=== PATIENT | female | born 1950 | race Caucasian/White ===

== ENCOUNTER 2022-05-04 09:31 | Emergency (ER) | payer MEDICARE, BC ==
[2022-05-04] MEDS ORDERED: Ondansetron PF 4 MG/2 ML Vial ONE (09:48)
[2022-05-04] MEDS ORDERED: Meclizine HCl 25 MG TAB ONE (09:48)
[2022-05-04 10:05] LABS: #Basophils 0.1 thou/uL (0.0-0.2); #Eosinphils 0.2 thou/uL (0.0-0.7); #Lymphocytes 1.7 thou/uL (1.20-3.40); #Monocytes 0.5 thou/uL (0.11-0.59); %Basophils 1.2 % (0.0-1.0); %Eosinophils 3.4 % (0.0-10.0); %Lymphocytes 30.5 % (21.0-51.0); %Monocytes 9.9 % (0.0-10.0); %Neutrophils 55.1 % (42.0-75.0); Hemoglobin 12.8 g/dL (12.0-16.0); Mean Corpuscular HGB CONC 32.4 g/dL (32.0-36.0); Mean Corpuscular Hemoglobin 29.2 pg (27.0-31.0); Mean Corpuscular Volume 90.1 fl (78.0-98.0); Mean Platelet Volume 8.7 fL (7.4-10.4); Platelet Count 227 thou/uL (130-400); RBC Distribution Width 11.5 % (11.5-14.5); Red Blood Cell (RBC) Count 4.37 mill/uL (4.20-5.40); White Blood Cell (WBC) Count 5.4 thou/uL (4.8-10.8)
[2022-05-04 10:24] LABS: ALT (SGPT) 15 U/L (8-55); AST (SGOT) 14 U/L (5-34); Albumin 3.7 g/dL (3.4-4.8); Alkaline Phosphatase 96 U/L (40-110); Anion Gap 14 mmol/L (10-20); BUN (Urea Nitrogen) 15 mg/dL (9.8-20.1); Bilirubin, Total 0.4 mg/dL (0.2-1.2); Calc. Creatinine Clearance 0 mL/min (70-130); Calcium 9.4 mg/dL (7.8-10.44); Carbon Dioxide 22 mmol/L (23-31); Chloride 110 mmol/L (98-107); Estimated GFR 69; Globulin 2.8 g/dL (2.4-3.5); Glucose 95 mg/dL (83-110); Potassium 3.8 mmol/L (3.5-5.1); Protein, Total 6.5 g/dL (5.8-8.1); Sodium 142 mmol/L (136-145)
[2022-05-04 11:00] LABS: Bilirubin Negative (Negative); Blood, Urine Negative (Negative); Clarity Slightly Cloudy (Clear); Glucose, Urine (Dipstick) Negative (Negative); Ketone, Urine Negative (Negative); Leukocyte Small (Negative); Nitrite Negative (Negative); Protein, Urine (Dipstick) Negative (Neg-Trace); Specific Gravity, Urine 1.015 (1.005-1.030); Urobilinogen 0.2 mg/dL (Less than 2); pH, Urine 7.5 (5.0-9.0)
[2022-05-04 11:08] LABS: RBC/HPF 0-3 HPF (0-3)
[2022-05-04 11:09] LABS: Bacteria/HPF 1+ HPF (None Seen)
== END 2022-05-04 11:45 | disposition home or self-care (01) ==
LOC: BURERS 09:31
DX: R42 Dizziness and giddiness (principal)
CPT/HCPCS: 70450; 80053; 81003; 81015; 85025; 93005; 94760; 96374; J2405

== ENCOUNTER 2024-04-19 14:28 | Emergency (ER) | payer MEDICARE, BC ==
[2024-04-19] MEDS ORDERED: Boostrix 0.5 ML (Tdap) VIAL (>/=7 yrs of age) ONE (15:44)
[2024-04-19] MEDS ORDERED: Cephalexin 250 MG CAP ONE (16:07)
== END 2024-04-19 16:17 | disposition home or self-care (01) ==
LOC: BURERS 14:28
DX: S81.812A Laceration without foreign body, left lower leg, initial encounter (principal); X58.XXXA Exposure to other specified factors, initial encounter; Y93.02 Activity, running; Z23 Encounter for immunization
CPT/HCPCS: 12004; 90471; 90715

== ENCOUNTER 2024-04-26 10:44 | Emergency (ER) | payer MEDICARE, BC | END 2024-04-26 11:08 | disposition home or self-care (01) | LOC: BURERS 10:44 | DX: L03.116 Cellulitis of left lower limb (principal); Z55.6 Problems related to health literacy | CPT/HCPCS: 99283 ==

== ENCOUNTER 2024-05-03 09:43 | Emergency (ER) | payer MEDICARE, BC | END 2024-05-03 10:32 | disposition home or self-care (01) | LOC: BURERS 09:43 | DX: S81.812D Laceration without foreign body, left lower leg, subsequent encounter (principal); T79.8XXA Other early complications of trauma, initial encounter; X58.XXXD Exposure to other specified factors, subsequent encounter ==